=== PATIENT | female | born 1955 | race Caucasian/White ===

== ENCOUNTER 2016-10-26 08:05 | Inpatient (IN) | payer OTHER ==
[2016-10-21 15:04] LABS: LYMPHOCYTES # (AUTO) 1.7 K/uL (1.0-4.8); MONOCYTES # (AUTO) 0.6 K/uL (0.1-1.0)
[2016-10-21 15:11] LABS: BASOPHILS % (AUTO) 0.7 % (0.0-2.0); EOSINOPHILS % (AUTO) 2.8 % (1.0-6.0); HEMOGLOBIN 12.7 g/dL (12.0-16.0); MEAN CORPUSCULAR HEMOGLOBIN 30.8 pg (26.0-34.0); MEAN CORPUSCULAR HGB CONC 33.4 G/dL (31.0-37.0); MEAN CORPUSCULAR VOLUME 92 fL (80-100); MONOCYTES % (AUTO) 9.9 % (2.0-9.0); NEUTROPHILS # (AUTO) 3.3 K/uL (1.8-7.7); NEUTROPHILS % (AUTO) 57.6 % (40.0-70.0); PLATELET COUNT (AUTO) 291 K/uL (150-450); RED BLOOD CELL COUNT(AUTO) 4.12 MIL/uL (4.00-5.20); RED CELL DISTRIBUTION WIDTH 13.1 % (11.5-14.5); WHITE BLOOD COUNT (AUTO) 5.8 K/uL (4.5-11.0)
[2016-10-21 15:12] LABS: PROTHROMBIN TIME 10.5 SEC (9.4-11.6)
[2016-10-21 15:22] LABS: ALANINE AMINOTRANSFERASE 23 U/L (12-78); ALBUMIN 3.3 g/dL (3.4-5.0); ANION GAP 5 mmol/L (8-16); ASPARTATE AMINOTRANSFERASE 22 U/L (15-37); BILIRUBIN,TOTAL 0.3 mg/dL (0.1-1.0); CALCIUM, TOTAL 8.5 mg/dL (8.8-10.5); CARBON DIOXIDE 30 mmol/L (22-29); CHLORIDE 103 mmol/L (98-107); CREATININE 0.81 mg/dL (0.60-1.30); GLOMERULAR FILTR. RATE CALC > 60 mL/min (>60); POTASSIUM 4.1 mmol/L (3.5-5.1); SODIUM SERUM 138 mmol/L (136-145); TOTAL PROTEIN, SERUM 6.9 g/dL (6.4-8.2); UREA NITROGEN, BLOOD 21 mg/dL (7-18)
[~2016-10-26 08:05] MED LIST: 0.9% SODIUM CHLORIDE 10 ML VIAL IVP ONE; BUDE10.22 IH; CITA20TA9 PO; DEXAMETHASONE SOD PHOS 4 MG/ML VIAL IVP ONE; FentaNYL CITRATE-PF 250 MCG/5 ML VIAL IVP ONE; HYDR-3110 PO; LIDOCAINE HCL/PF 2% 5 ML VIAL IM ONE; MIDAZOLAM HCL 2 MG/2 ML VIAL IVP ONE; MONT10TA21 PO; ONDANSETRON HCL 4 MG/2 ML VIAL IVP ONE; PROPOFOL 1% 20 ML VIAL IVP ONE; RINGERS SOLUTION,LACTATED 1,000 ML IV ONE
[2016-10-26] MEDS ORDERED: BUPIVACAINE HCL/PF 0.5% 30 ML VIAL ONE (08:28)
[2016-10-26] MEDS ORDERED: ZOLPIDEM TARTRATE 5 MG TABLET PO PRN (10:00)
[2016-10-26] MEDS ORDERED: CYCLOBENZAPRINE HCL 10 MG TABLET PO PRN (10:00)
[2016-10-26] MEDS ORDERED: ONDANSETRON HCL 4 MG/2 ML VIAL IVP PRN (10:00)
[2016-10-26] MEDS ORDERED: HYDROmorphone 2 MG/ML SYRINGE IVP PRN ×2 (10:00)
[2016-10-26] MEDS ORDERED: FentaNYL CITRATE-PF 100 MCG/2 ML VIAL IVP PRN (10:00)
[2016-10-26] MEDS ORDERED: PROMETHAZINE HCL 25 MG/ML VIAL IM PRN (10:00)
[2016-10-26] MEDS ORDERED: MEPERIDINE-PF 25 MG/ML SYRINGE IVP PRN (10:00)
[2016-10-26] MEDS: ACETAMINOPHEN 1000 MG/ISO-OSM 100 ML IV SCH ×3 (10:07→19:58)
[2016-10-26] MEDS ORDERED: ALBUTEROL SULFATE 2.5 MG/0.5 ML NEB SOLUTION NEB PRN (11:00)
[2016-10-26] MEDS ORDERED: BENZOCAINE/MENTHOL LOZENGE [8 LOZENGES/PACKET] PO PRN (11:30)
[2016-10-26] MEDS ORDERED: BACITRACIN 28.4 GM OINTMENT TP PRN (11:30)
[2016-10-26] MEDS ORDERED: MAG HYDROX/AL HYDROX/SIMETH 30 ML SUSP UDCUP PO PRN (11:30)
[2016-10-26] MEDS ORDERED: DiphenhydrAMINE HCL 50 MG/ML VIAL IVP PRN (11:30)
[2016-10-26 13:47] VITALS: BP 137/89
[2016-10-26 16:29] VITALS: BP 119/74
[2016-10-26] MEDS: CeFAZolin 1 GM/DEXTROSE 50 ML IV SCH (18:38)
[2016-10-26 19:33] VITALS: BP 117/63
[2016-10-26] MEDS: HydrOXYzine HCL 10 MG TABLET PO SCH (19:57)
[2016-10-26] MEDS: MONTELUKAST SODIUM 10 MG TABLET PO SCH (19:57)
[2016-10-26] MEDS: CITALOPRAM HYDROBROMIDE 20 MG TABLET PO SCH (19:57)
[2016-10-26] MEDS: DOCUSATE SODIUM 100 MG CAPSULE PO SCH (19:58)
[2016-10-26] MEDS: ZOLPIDEM TARTRATE 10 MG TABLET PO PRN (22:19)
[2016-10-26] MEDS: OXYGEN THERAPY IH SCH (22:22)
[2016-10-27] VITALS (7 sets, daily range): BP systolic 100–119; BP diastolic 54–77
[2016-10-27] MEDS: ACETAMINOPHEN 1000 MG/ISO-OSM 100 ML IV SCH (02:39)
[2016-10-27] MEDS: CeFAZolin 1 GM/DEXTROSE 50 ML IV SCH (02:39)
[2016-10-27] MEDS: OXYGEN THERAPY IH SCH ×2 (08:00→20:00)
[2016-10-27] MEDS: BUDESONIDE/FORMOTEROL FUMARATE 80-4.5 MCG/PUFF 6.9 GM INHALER IH SCH (08:11)
[2016-10-27] MEDS: DOCUSATE SODIUM 100 MG CAPSULE PO SCH ×2 (08:11→20:45)
[2016-10-27] MEDS: OxyCODONE HCL/ACETAMINOPHEN 10-325 MG TABLET PO PRN ×2 (10:26→15:45)
[2016-10-27] MEDS: MONTELUKAST SODIUM 10 MG TABLET PO SCH (20:45)
[2016-10-27] MEDS: CITALOPRAM HYDROBROMIDE 20 MG TABLET PO SCH (20:45)
[2016-10-27] MEDS: HydrOXYzine HCL 10 MG TABLET PO SCH (20:45)
[2016-10-28] MEDS: ZOLPIDEM TARTRATE 10 MG TABLET PO PRN (01:03)
[2016-10-28 04:00] VITALS: BP 108/61
[2016-10-28] MEDS: OxyCODONE HCL/ACETAMINOPHEN 10-325 MG TABLET PO PRN ×2 (07:28→11:32)
[2016-10-28] MEDS: DOCUSATE SODIUM 100 MG CAPSULE PO SCH (07:29)
[2016-10-28 07:30] VITALS: BP 123/75
[2016-10-28] MEDS: OXYGEN THERAPY IH SCH (08:00)
[2016-10-28] MEDS: BUDESONIDE/FORMOTEROL FUMARATE 80-4.5 MCG/PUFF 6.9 GM INHALER IH SCH (11:27)
[2016-10-28 11:30] VITALS: BP 118/71
== END 2016-10-28 13:50 | disposition home or self-care (01) | DRG 473 ==
LOC: 4E 08:05 → OBSVTOIN 08:05
PROVIDERS: ADMIT Hospitalist; ATTEND Orthopaedic Surgery Orthopaedic Surgery of the Spine
PROC: 0RG10K0 Fusion of Cervical Vertebral Joint with Nonautologous Tissue Substitute, Anterior Approach, Anterior Column, Open Approach (ICD-10-PCS; 2016-10-26)
PROC: 0RP104Z Removal of Internal Fixation Device from Cervical Vertebral Joint, Open Approach (ICD-10-PCS; 2016-10-26)
PROC: 0RB30ZZ Excision of Cervical Vertebral Disc, Open Approach (ICD-10-PCS; 2016-10-26)
PROC: 01N10ZZ Release Cervical Nerve, Open Approach (ICD-10-PCS; 2016-10-26)
PROC: 0RJ10ZZ Inspection of Cervical Vertebral Joint, Open Approach (ICD-10-PCS; 2016-10-26)
PROC: 0RG10A0 Fusion of Cervical Vertebral Joint with Interbody Fusion Device, Anterior Approach, Anterior Column, Open Approach (ICD-10-PCS; principal; 2016-10-26 10:00)
DX: M48.02 Spinal stenosis, cervical region (principal); M54.12 Radiculopathy, cervical region; J45.909 Unspecified asthma, uncomplicated; F32.9 Major depressive disorder, single episode, unspecified; R21 Rash and other nonspecific skin eruption; R13.10 Dysphagia, unspecified; Z82.49 Family history of ischemic heart disease and other diseases of the circulatory system; Z98.890 Other specified postprocedural states
CPT/HCPCS: 87081; 88300; 93005; 93306; 97161; 97165; C1713; G0238; J0131; J0690; J1100; J1170; J2250; J2405; J2704; J3010; J3490; J7120